=== PATIENT | female | born 1965 | race Caucasian/White ===

== ENCOUNTER 2023-03-29 10:58 | Day surgery (SDC) | payer MEDICAID ==
[2023-03-24 11:05] LABS: BASOPHILS % (AUTO) 0.5 % (0-1); EOSINOPHILS # (AUTO) 0.1 X10'3 (0-0.9); EOSINOPHILS % (AUTO) 1.3 % (0-6); LYMPHOCYTES # (AUTO) 1.4 X10'3 (1.1-4.8); LYMPHOCYTES % (AUTO) 33.2 % (21-51); MEAN CORPUSCULAR HEMOGLOBIN 29.9 PG (27.0-31.0); MEAN CORPUSCULAR HGB CONC 34.2 g/dL (33.0-36.5); MEAN CORPUSCULAR VOLUME 87.3 FL (78-98); MONOCYTES # (AUTO) 0.4 X10'3 (0-0.9); MONOCYTES % (AUTO) 8.9 % (2-12); NEUTROPHILS # (AUTO) 2.4 X10'3 (1.8-7.7); NEUTROPHILS % (AUTO) 56.1 % (42-75); PRE OP HEMATOCRIT 37.1 % (35.0-45.0); PRE OP HEMOGLOBIN 12.7 g/dL (12.0-16.0); PRE OP PLATELET COUNT 257 X10'3 (140-440); PRE OP WHITE BLOOD COUNT 4.3 10'3 (4.8-10.8); RED BLOOD COUNT 4.25 X10'6 (4.20-5.60); RED CELL DISTRIBUTION WIDTH 13.7 % (11.5-14.5)
[2023-03-24 11:13] LABS: PRE OP PROTIME 10.6 SECONDS (9.0-12.0)
[2023-03-24 11:18] LABS: ALBUMIN 3.4 G/DL (3.4-5.0); ALKALINE PHOSPHATASE 78 IU/L (46-116); BLOOD UREA NITROGEN 19 MG/DL (7-18); BUN/CREATININE RATIO 26.8 (10.0-20.0); CHLORIDE 108 MMOL/L (99-107); CREATININE 0.71 MG/DL (0.40-0.90); PRE OP ALT 20 U/L (30-65); PRE OP ANION GAP 3 (8-16); PRE OP AST 16 U/L (10-37); PRE OP BILIRUB, TOTAL 0.5 MG/DL (0.0-1.0); PRE OP GLUCOSE 81 MG/DL (70-104); PRE OP SODIUM 139 MMOL/L (135-145); TOTAL CARBON DIOXIDE 27.8 MMOL/L (24-32); TOTAL PROTEIN 6.7 G/DL (6.4-8.2); eGFR 85 ML/MIN
[~2023-03-29] VITALS: Ht 160 cm; Wt 99.8 kg
[2023-03-29] VITALS (10 sets, daily range): BP systolic 124–171; BP diastolic 64–117; PULSE 56–78; RESP 9–61; TEMP 98.3; O2SAT 93–99
[~2023-03-29 10:58] MED LIST: MULTIVITAMIN; PARO10TA4 PO; [UNRECOGNIZED DRUG - OTHER]; cefazolin 2gm/D5W 100mL 100 ML IV ONE; famotidine 20mg tablet PO ONE; ringers solution, lacted 1,000 ML IV SCH
[2023-03-29] MEDS ORDERED: BUPIVAcaine/PF 2.5mg/ml (0.25%) 10ml vial ONE (12:00)
[2023-03-29] MEDS ORDERED: LIDOcaine 1% (10mg/ml)w/preservative inj. 20ml MDV ONE (12:00)
[2023-03-29] MEDS ORDERED: methylene blue (5mg/ml) 50mg/10ml ampul IV ONE (12:00)
[2023-03-29] MEDS ORDERED: sevoflurane 250ml liquid IH ONE (12:09)
[2023-03-29] MEDS ORDERED: fentaNYL/PF 50MCG/1 ML 2ML syringe ONE (12:11)
[2023-03-29] MEDS ORDERED: propofol inj 20 ML IV ONE (12:12)
[2023-03-29] MEDS ORDERED: midazolam 1 mg/ML 2ml injection ONE (12:12)
[2023-03-29] MEDS ORDERED: dexamethasone sod phosphate 4mg/ml inj. ONE (12:26)
[2023-03-29] MEDS ORDERED: ondansetron/PF 4mg/2ml inj ONE (12:47)
[2023-03-29] MEDS ORDERED: morphine 2 MG/ML inj. syringe IV PRN (12:55)
[2023-03-29] MEDS ORDERED: morphine 4 MG/ML inj SYRINge IV PRN (12:55)
[2023-03-29] MEDS ORDERED: ringers solution, lacted 1,000 ML IV SCH (12:55)
[2023-03-29] MEDS ORDERED: ondansetron/PF 4mg/2ml inj IV PRN (12:55)
[2023-03-29] MEDS ORDERED: proCHLORperazine 10 MG/2 ml inj IV PRN (12:55)
[2023-03-29] MEDS ORDERED: meperidine/PF 25mg/ml syringe IV PRN ×2 (12:55)
[2023-03-29] MEDS ORDERED: acetaminophen 1,000mg/100ml IV 100 ML IV ONE (13:18)
--- NOTE | 2023-03-29 13:44 | NUR ---
Received from OR via GURNEY TO RR 7, accompanied by Anesthesiologist DI and report given by Anesthesiologist. PT PRESENTS ON 6L VIA MASK. LEFT AXILLARY/BREAST DRESSING CDI AND BREAST BINDER IN PLACE. PT VERBLIZES 01/14 PAIN: MD GAVE ORDER TO INFUSE TYLENOL WHICH IS ALREADY HANGING. PATIENT A&OX4, NEUROVASCULAR CHECKS INTACT, PIV TO R HAND 20G, SCDS ON.
[2023-03-29] MEDS: meperidine/PF 25mg/ml syringe IV PRN ×2 (13:58→14:20)
[2023-03-29] MEDS ORDERED: HYDROcodone/acetaminophen 5mg/325mg tablet PO ONE (14:25)
--- NOTE | 2023-03-29 15:14 | NUR ---
PT HAS MET D/C CRITERIA. IV D/C'D. VSS. DRESSING C/D/I. ICE INTACT. I HAVE REVIEWED D/C INSTRUCTIONS WITH PATIENT AND SHE HAS VERBALIZED UNDERSTANDING OF INSTRUCTIONS. ALL QUESTIONS, COMMENTS, AND CONCERNS WERE ANSWERED AT THIS TIME. LEFT BREAST/AXILLARY AREA DRESSING REMAINS CDI, BREAST BINDER ON AND STRAPS IN PERSONAL BELONGINGS BAG. PT WAS ABLE TO GET DRESSED WITH ASSISTANCE AND AMBULATED TO W/C WITH STANDBY ASSIST. PT WAS WHEELED OUT TO PRIVATE VEHICLE AND TRANSFERRED INTO VEHICLE WITHOUT INCIDENT. PATIENT D/C HOME WITH ALL BELONGINGS.
== END 2023-03-29 15:14 | disposition home or self-care (01) ==
LOC: PAS 10:58
PROVIDERS: ATTEND Surgery
DX: C50.412 Malignant neoplasm of upper-outer quadrant of left female breast (principal); I10 Essential (primary) hypertension; E66.9 Obesity, unspecified; F32.A Depression, unspecified; K21.9 Gastro-esophageal reflux disease without esophagitis; M19.90 Unspecified osteoarthritis, unspecified site; Z79.899 Other long term (current) drug therapy; Z90.89 Acquired absence of other organs; Z98.84 Bariatric surgery status; Z98.891 History of uterine scar from previous surgery; Z98.890 Other specified postprocedural states; Z68.39 Body mass index [BMI] 39.0-39.9, adult; Z91.041 Radiographic dye allergy status
CPT/HCPCS: 19301; 36415; 38525; 38900; 76098; 80053; 82948; 85025; 85610; 85730; 93005; J0131; J0690; J0780; J1100; J2175; J2250; J2405; J2704; J3010; J3490; J7030; J7120; Q9968; Z7506; Z7508; Z7512; A4215; A4618; A6258; A7000

== ENCOUNTER 2024-08-11 12:29 | Emergency (ER) | payer MEDICAID ==
[~2024-08-11] VITALS: Ht 160 cm; Wt 108.0 kg
[~2024-08-11 12:29] MED LIST changes: -cefazolin 2gm/D5W 100mL 100 ML IV ONE; -famotidine 20mg tablet PO ONE; -ringers solution, lacted 1,000 ML IV SCH
[2024-08-11 12:41] VITALS: TEMP 98.5
[2024-08-11 13:43] LABS: BASOPHILS % (AUTO) 0.4 % (0-1); EOSINOPHILS # (AUTO) 0.1 X10'3 (0-0.9); EOSINOPHILS % (AUTO) 2.6 % (0-6); HEMATOCRIT 35.4 % (35.0-45.0); LYMPHOCYTES % (AUTO) 17.7 % (21-51); MEAN CORPUSCULAR HEMOGLOBIN 30.3 PG (27.0-31.0); MEAN CORPUSCULAR HGB CONC 33.8 g/dL (33.0-36.5); MEAN CORPUSCULAR VOLUME 89.6 FL (78-98); MONOCYTES # (AUTO) 0.4 X10'3 (0-0.9); MONOCYTES % (AUTO) 7.3 % (2-12); NEUTROPHILS # (AUTO) 4.1 X10'3 (1.8-7.7); PLATELET COUNT 232 X10'3 (140-440); RED BLOOD COUNT 3.96 X10'6 (4.20-5.60); RED CELL DISTRIBUTION WIDTH 13.9 % (11.5-14.5); WHITE BLOOD COUNT 5.7 X10'3 (4.5-11.0)
[2024-08-11 14:07] LABS: ALANINE AMINOTRANSFERASE 19 U/L (12-78); ALBUMIN 3.3 G/DL (3.4-5.0); ALBUMIN/GLOBULIN RATIO 1.1 (1.1-1.5); ALKALINE PHOSPHATASE 68 IU/L (46-116); ANION GAP 4 (8-16); ASPARTATE AMINO TRANSFERASE 12 U/L (10-37); BILIRUBIN,TOTAL 0.4 MG/DL (0.1-1.0); BLOOD UREA NITROGEN 17 MG/DL (7-18); BUN/CREATININE RATIO 25.4 (10.0-20.0); CALCIUM 8.8 MG/DL (8.5-10.1); CHLORIDE 110 MMOL/L (99-107); CREATININE 0.67 MG/DL (0.40-0.90); GLUCOSE 90 MG/DL (70-104); POTASSIUM 4.2 MMOL/L (3.5-5.1); SODIUM 144 MMOL/L (135-145); TOTAL CARBON DIOXIDE 30.5 MMOL/L (24-32); TOTAL PROTEIN 6.3 G/DL (6.4-8.2); eCRCL 77 ML/MIN; eGFR > 90 ML/MIN
[2024-08-11 14:08] LABS: PRO BRAIN NATRIURETIC PEPTIDE 255 PG/ML (0-125)
[2024-08-11] MEDS ORDERED: NAPR-56 PO (16:10)
[2024-08-11 17:08] VITALS: BP 155/80; PULSE 63; RESP 16; O2SAT 96
== END 2024-08-11 17:09 | disposition home or self-care (01) ==
LOC: ER 12:29
DX: R07.89 Other chest pain (principal); I10 Essential (primary) hypertension; Z88.5 Allergy status to narcotic agent; Z88.8 Allergy status to other drugs, medicaments and biological substances; Z79.899 Other long term (current) drug therapy; Z20.822 Contact with and (suspected) exposure to COVID-19
CPT/HCPCS: 36415; 71045; 80053; 83880; 84484; 85025; 87502; 87503; 87811; 93005; 99285